=== PATIENT | female | born 2000 | race Caucasian/White ===

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

== ENCOUNTER → 2022-02-11 15:04 | Outpatient (BNVA) | payer MEDICAID, SELFPAY | PROVIDERS: PCP Registered Nurse; Visit Provider Obstetrics & Gynecology | DX: Z34.90 Encounter for supervision of normal pregnancy, unspecified, unspecified trimester (principal); Z3A.00 Weeks of gestation of pregnancy not specified | CPT/HCPCS: 81000 ==

== ENCOUNTER → 2022-02-25 09:33 | Outpatient (BNVA) | payer MEDICAID, SELFPAY | PROVIDERS: PCP Registered Nurse; Visit Provider Obstetrics & Gynecology | DX: Z34.90 Encounter for supervision of normal pregnancy, unspecified, unspecified trimester (principal) | CPT/HCPCS: 80307; 84315; 84443; 85025; 86592; 86762; 86803; 86850; 86900; 87086; 87340; 87491; 87591; 87661; 87806 ==

== ENCOUNTER → 2022-03-25 08:39 | Outpatient (BNVA) | payer MEDICAID, SELFPAY | PROVIDERS: PCP Registered Nurse; Visit Provider Obstetrics & Gynecology | DX: Z34.90 Encounter for supervision of normal pregnancy, unspecified, unspecified trimester (principal) | CPT/HCPCS: 81000; 87086 ==

== ENCOUNTER → 2022-03-28 10:55 | Outpatient (BNVA) | payer MEDICAID, SELFPAY | PROVIDERS: PCP Registered Nurse; Visit Provider Obstetrics & Gynecology | DX: Z34.90 Encounter for supervision of normal pregnancy, unspecified, unspecified trimester (principal) | CPT/HCPCS: 87086 ==

== ENCOUNTER 2022-06-20 10:32 | Outpatient (CLI) | payer MEDICAID, SELFPAY ==
[2022-06-20 10:52] LABS: Basophils # 0.1 10^3/uL (0.0-0.1); Basophils % 0.5 %; Eosinophils # 0.1 10^3/uL (0.0-0.8); Eosinophils % 0.6 %; Hematocrit 39.9 % (37.0-47.0); Hemoglobin 12.8 g/dL (11.5-15.3); Lymphocytes # 1.2 10^3/uL (1.5-6.5); Lymphocytes % 11.3 %; Mean Corpuscular HGB Conc 32.1 g/dL (30.0-36.0); Mean Corpuscular Hemoglobin 30.4 pg (28.0-34.0); Mean Corpuscular Volume 94.8 fl (81-99); Mean Platelet Volume 9.6 fL (7.4-10.4); Monocytes # 0.5 10^3/uL (0.2-0.9); Neutrophils # 8.59 10^3/uL (1.8-8.0); Neutrophils % 81.8 %; Nucleated Red Blood Cells % 0 %; Platelet Count 205 10^3/cmm (130-400); Red Blood Count 4.21 10^6/uL (4.1-5.3); Red Cell Distribution Width 12.3 % (12.1-15.1); White Blood Count 10.5 10^3/uL (4.5-13.0)
== END 2022-06-20 10:33 | disposition home or self-care (01) ==
LOC: LAB 10:34
PROVIDERS: PCP Registered Nurse; Visit Provider Obstetrics & Gynecology
DX: Z34.90 Encounter for supervision of normal pregnancy, unspecified, unspecified trimester (principal)
CPT/HCPCS: 36415; 82950; 85025; 86850; 87086

== ENCOUNTER → 2022-07-05 10:00 | Outpatient (BNVA) | payer MEDICAID, SELFPAY | PROVIDERS: PCP Registered Nurse; Visit Provider Obstetrics & Gynecology | DX: Z34.90 Encounter for supervision of normal pregnancy, unspecified, unspecified trimester (principal); R82.90 Unspecified abnormal findings in urine | CPT/HCPCS: 81000; 87086 ==

== ENCOUNTER → 2022-07-17 10:55 | Outpatient (BNVA) | payer MEDICAID, SELFPAY | PROVIDERS: PCP Registered Nurse; Visit Provider Obstetrics & Gynecology | DX: Z34.90 Encounter for supervision of normal pregnancy, unspecified, unspecified trimester (principal) | CPT/HCPCS: 81000 ==

== ENCOUNTER → 2022-07-31 13:56 | Outpatient (BNVA) | payer MEDICAID, SELFPAY | PROVIDERS: PCP Registered Nurse; Visit Provider Nurse Practitioner Women's Health | DX: Z34.90 Encounter for supervision of normal pregnancy, unspecified, unspecified trimester (principal); Z3A.00 Weeks of gestation of pregnancy not specified | CPT/HCPCS: 80053; 81000; 82570; 84156 ==

== ENCOUNTER → 2022-08-15 10:15 | Outpatient (BNVA) | payer MEDICAID, SELFPAY | PROVIDERS: PCP Registered Nurse; Visit Provider Obstetrics & Gynecology | DX: Z34.90 Encounter for supervision of normal pregnancy, unspecified, unspecified trimester (principal) | CPT/HCPCS: 84315; 87081; 87086 ==

== ENCOUNTER 2022-08-18 17:45 | Inpatient (IN) | payer MEDICAID, SELFPAY ==
[2022-08-18 17:20] VITALS: BMI 24.1
[2022-08-18 17:31] VITALS: RESP 16
--- NOTE | 2022-08-18 17:35 | PM.OPHPUD ---
Labor & Delivery H&P Update Date of Procedure: August 18, 2022 Date H&P Performed: 08/15/22 H&P update information: I have reviewed H&P completed within last 30 days, I have examined patient prior to procedure and Changes to prior documentation as noted here (cervix: /-3/VX/IM) Admission Diagnosis: Preop diagnosis: IUP
[2022-08-18 17:47] LABS: Bilirubin Urine Neg (Negative); Blood Urine Neg (Negative); Glucose Urine UA Norm (Normal); Ketones Urine 1+ (Negative); Nitrate Urine Negative (Negative); Protein Urine Neg (Negative); Specific Gravity, Urine 1.015 (1.005-1.030); Urine Appearance Clear (CLEAR); Urine Color Yellow (Yellow); pH Urine 7 (5-7)
[2022-08-18 17:48] LABS: Add Urine Culture? No; Bacteria Urine TRACE /hpf; Leukocyte Esterase Urine Negative (Negative); Urobilinogen Urine Norm (Negative); WBC Urine RARE /hpf (0-5)
[2022-08-18 18:07] VITALS: BP 115/76; PULSE 70
[2022-08-18 19:45] VITALS: BP 110/64; PULSE 61
[2022-08-18 20:47] VITALS: BP 120/71; PULSE 67
[2022-08-18 21:14] VITALS: BP 115/69; PULSE 70; RESP 18; TEMP 36.3
[2022-08-18] MEDS: lactated ringers 1,000 ML 999 ML IV (21:50)
[2022-08-18 22:25] LABS: Basophils # 0.1 10^3/uL (0.0-0.1); Basophils % 0.5 %; Eosinophils % 0.2 %; Hematocrit 40.6 % (37.0-47.0); Lymphocytes # 1.6 10^3/uL (1.5-6.5); Lymphocytes % 12.6 %; Mean Corpuscular Hemoglobin 29.2 pg (28.0-34.0); Mean Corpuscular Volume 91.2 fl (81-99); Mean Platelet Volume 11.4 fL (7.4-10.4); Monocytes # 0.6 10^3/uL (0.2-0.9); Monocytes % 4.9 %; Neutrophils # 10.04 10^3/uL (1.8-8.0); Neutrophils % 81.2 %; Nucleated Red Blood Cells % 0 %; Platelet Count 238 10^3/cmm (130-400); Red Blood Count 4.45 10^6/uL (4.1-5.3); Red Cell Distribution Width 12.5 % (12.1-15.1); White Blood Count 12.4 10^3/uL (4.5-13.0)
[2022-08-18] MEDS: dextrose 5%-lactated ringers 1,000 ML 125 ML IV (22:55)
[2022-08-18 23:14] LABS: Slide Review Slide Review Perform
[2022-08-18] MEDS: oxytocin 30 UNIT/500 ML BAG 600 UNIT IV (23:45)
--- NOTE | 2022-08-18 23:46 | PM.DELIVERY ---
Delivery Note: Date of delivery: August 18, 2022 Pre-delivery diagnoses: Term Post-delivery diagnoses: Term delivered Procedure: Spontaneous vaginal delivery Delivering Physician: Jignesh Lockett MD Estimated blood loss (mL): 300 Delivery: The patient was noted to be complete and pushing, so was placed in the dorsal lithotomy position, prepped and draped in the usual sterile fashion for a vaginal delivery. Pt. Noted to have epidural anesthesia. At 1139 the patient delivered a viable term female weighing 2770 g with scores of 8 and 9 at one and five minutes, respectively. The vertex was delivered spontaneously over intact perineum. The patient was asked to push and the head delivered spontaneously in the AGAPITO position, over an intact perineum. A nuchal cord was checked and none noted. The anterior shoulder delivered easily and the posterior shoulder followed. The remainder of the was easily delivered and the oropharynx and nasopharynx was bulb suctioned. The was noted to have spontaneous cry and spontaneous movement of all four extremities. The cord was clamped x 2 and cut and noted to have 2 arteries and one vein. The was passed to the mother's at the where nursing personnel were in attendance. Cord blood sample was then obtained. The placenta delivered intact spontaneously and the uterus was explored. 20 units of Pitocin was placed in the IV bag to firm the uterus. Examination of the cervix and vaginal vault did not reveal any lacerations. A vaginal pack was then placed. Examination of the perineum showed no lacerations. The vaginal pack was then removed. The patient tolerated this procedure well, and recovered in L&D with her in their LDR room. All sponge and needle counts were correct. Post-Delivery Status: Good and stable History History History 3 Term 1 0 Miscarriages/Ectopic 1 Living Children 1 A&P Assessment and plan (1) Term delivered: Plan observation Coding Level of Care Code Acute Code for Chg Fwd Diagnoses Term delivered O80
[2022-08-18 23:50] VITALS: PULSE 80; RESP 16
[2022-08-19] VITALS (12 sets, daily range): BP systolic 106–116; BP diastolic 54–85; PULSE 60–75; RESP 15–18; TEMP 36.6–36.9; O2SAT 98
[2022-08-19] MEDS: ibuprofen 800 mg tablet PO ×4 (00:33→20:48)
[2022-08-19] MEDS: docusate sodium 100 mg Capsule PO (08:57)
[2022-08-19] MEDS: prenatal vitamin Capsule 1 CAP PO (08:57)
[2022-08-19 13:36] LABS: Hemoglobin 11.6 g/dL (11.5-15.3); Mean Corpuscular HGB Conc 32.2 g/dL (30.0-36.0); Mean Corpuscular Hemoglobin 29.6 pg (28.0-34.0); Mean Corpuscular Volume 91.8 fl (81-99); Mean Platelet Volume 10.3 fL (7.4-10.4); Platelet Count 213 10^3/cmm (130-400); Red Blood Count 3.92 10^6/uL (4.1-5.3); Red Cell Distribution Width 12.6 % (12.1-15.1); White Blood Count 14.3 10^3/uL (4.5-13.0)
--- NOTE | 2022-08-19 17:16 | PM.PN ---
Subjective Subjective: Mrs. Reeves 22-year-old female G2, P2 status post continuous vaginal delivery day 1. under observation Vitals/I&O/Wt Last Vital Signs Temp 98.2 F 08/20/22 16:00 Pulse 70 08/20/22 16:00 Resp 16 08/20/22 16:00 BP 103/65 08/20/22 16:00 Pulse Ox 100 08/20/22 16:00 O2 Del Method 08/20/22 16:00 Weight last 48 hrs Weight 72.121 kg Physical Exam Narrative: GA; alert and oriented x 3 HEENT: normal Breasts: engorged Nipples - skin intact Lungs; clear to auscultation Heart: regular rhythm, no murmurs. Abd: Appropriately tender. BS+. Uterine fundus below umbilicus. No Fundal Tenderness. Perineum: normal lochia. Extremities: no edema, no cyanosis, no tenderness. Data 08/19/22 12:20 A&P Assessment and plan (1) Term delivered: Mrs. Reeves status post continuous vaginal delivery day 1. Afebrile hemodynamically stable. Tolerating diet well. Ambulating without difficulty. Plan observation Attestations Medical Necessity Statement*: In my professional opinion per admitting diagnosis Coding Level of Care Code Acute Code for Chg Fwd Diagnoses Term delivered O80
[2022-08-20 03:34] VITALS: BP 103/64; PULSE 64; RESP 14
[2022-08-20] MEDS: lanolin oint 7 gm 1 APPLIC TOPICAL (08:15)
[2022-08-20] MEDS: ibuprofen 800 mg tablet PO ×2 (09:07→14:54)
[2022-08-20] MEDS: docusate sodium 100 mg Capsule PO (09:07)
[2022-08-20] MEDS: prenatal vitamin Capsule 1 CAP PO (09:07)
[2022-08-20 10:01] VITALS: BP 99/64; PULSE 68; RESP 16; TEMP 36.6; O2SAT 98
[2022-08-20] MEDS: HYDROcodone-acetaminophen 5-325 mg Tablet PO (11:02)
[2022-08-20 16:00] VITALS: BP 103/65; PULSE 70; RESP 16; TEMP 36.8; O2SAT 100
--- NOTE | 2022-08-20 17:09 | PM.OBGYDC ---
Discharge Providers CASTING COORDINATOR Date of Admission: 08/18/22 17:45 Date of Discharge: 08/20/22 Attending Provider at Admission: Jignesh Lockett MD Attending Provider at Discharge: Jignesh Lockett MD Primary CASTING COORDINATOR: Dr. Cowan Primary Care Provider: Amira Macias Diagnoses at Discharge Discharge Diagnosis (1) Term delivered: Status: Acute Reason for Visit Reason for Visit: CONTRACTIONS Hospital Course Hospital Course Mrs. Reeves 22-year-old female with a term came to labor and delivery. She progressed to have a spontaneous vaginal delivery without complications. observation was uneventful. She is afebrile and hemodynamically stable day 2. Tolerating diet well. Ambulating without difficulty. Counseled regarding pelvic rest for 6 weeks (no sex, no tampons, no vaginal douches). Return to the emergency room if any fever, increased bleeding or pain. Information Peripartum Data: Infant Delivery Method: Vaginal Physical Exam Narrative: GA; alert and oriented x 3 HEENT: normal Breasts: engorged Nipples - skin intact Lungs; clear to auscultation Heart: regular rhythm, no murmurs. Abd: Appropriately tender. BS+. Uterine fundus below umbilicus. No Fundal Tenderness. Perineum: normal lochia. Extremities: no edema, no cyanosis, no tenderness. History History History 3 Term 1 0 Miscarriages/Ectopic 1 Living Children 1 Discharge Data Studies Completed and Pending Laboratory Results WBC 14.3 10^3/uL (4.5-13.0) H 08/19/22 12:20 RBC 3.92 10^6/uL (4.1-5.3) L 08/19/22 12:20 Hgb 11.6 g/dL (11.5-15.3) 08/19/22 12:20 Hct 36.0 % (37.0-47.0) L 08/19/22 12:20 MCV 91.8 fl (81-99) 08/19/22 12:20 MCH 29.6 pg (28.0-34.0) 08/19/22 12:20 MCHC 32.2 g/dL (30.0-36.0) 08/19/22 12:20 RDW 12.6 % (12.1-15.1) 08/19/22 12:20 Plt Count 213 10^3/cmm (130-400) 08/19/22 12:20 MPV 10.3 fL (7.4-10.4) 08/19/22 12:20 Neut % (Auto) 81.2 % 08/18/22 17:47 Lymph % (Auto) 12.6 % 08/18/22 17:47 [place] % (Auto) 4.9 % 08/18/22 17:47 Eos % (Auto) 0.2 % 08/18/22 17:47 Baso % (Auto) 0.5 % 08/18/22 17:47 Neut # (Auto) 10.04 10^3/uL (1.8-8.0) H 08/18/22 17:47 Lymph # (Auto) 1.6 10^3/uL (1.5-6.5) 08/18/22 17:47 [place] # (Auto) 0.6 10^3/uL (0.2-0.9) 08/18/22 17:47 Eos # (Auto) 0.0 10^3/uL (0.0-0.8) 08/18/22 17:47 Baso # (Auto) 0.1 10^3/uL (0.0-0.1) 08/18/22 17:47 Nucleated RBC % (auto) 0 % 08/18/22 17:47 Nucleated RBCs # 0.0 /100WBC 08/18/22 17:47 Urine Color Yellow (Yellow) 08/18/22 17:30 Urine Appearance Clear (CLEAR) 08/18/22 17:30 Urine pH 7 (5-7) 08/18/22 17:30 Ur Specific [place] 1.015 (1.005-1.030) 08/18/22 17:30 Urine Protein Neg (Negative) 08/18/22 17:30 Urine Glucose (UA) Norm (Normal) 08/18/22 17:30 Urine Ketones 1+ (Negative) H 08/18/22 17:30 Urine Blood Neg (Negative) 08/18/22 17:30 Urine Nitrate Negative (Negative) 08/18/22 17:30 Urine Bilirubin Neg (Negative) 08/18/22 17:30 Urine Urobilinogen Norm mg/dL (Negative) 08/18/22 17:30 Ur Leukocyte Esterase Negative (Negative) 08/18/22 17:30 Urine RBC None /hpf (0-2) 08/18/22 17:30 Urine WBC Rare /hpf (0-5) 08/18/22 17:30 Ur Squamous Epith Cells 5-10 /hpf (0-5) H 08/18/22 17:30 Amorphous Sediment Not Reportable 08/18/22 17:30 Urine Bacteria Trace /hpf (NONE) 08/18/22 17:30 Vitals Last Vital Signs Temp 98.2 F 08/20/22 16:00 Pulse 70 08/20/22 16:00 Resp 16 08/20/22 16:00 BP 103/65 08/20/22 16:00 Pulse Ox 100 08/20/22 16:00 O2 Del Method 08/20/22 16:00 Discharge Plan Discharge Patient Disposition: Home Condition: Stable Prescriptions: New acetaminophen 325 mg capsule 325 mg PO Q4H PRN (Reason: fever or pain) Qty: 60 0RF docusate sodium [Colace] 100 mg capsule 100 mg PO BID Qty: 60 0RF ibuprofen 800 mg tablet 800 mg PO TID PRN (Reason: pain) Qty: 60 0RF Continued prenat.vits,bud,pfg-amch-kmawm Tablet 1 tab PO DAILY Discharge Orders: Discharge Order (Routine); Ordered 08/20/22 Ordered By: Jignesh Lockett Referrals: Jignesh Lockett MD [Physician] - Stephanie Cowan MD [Physician] - 6 Weeks Discharge Diet: Usual diet Discharge Activity: Limit activity as instructed Patient Instructions: Opioid Safety Activity Restrictions/Additional Instructions: 1. Please call [facility] on next working day to make your appointment in 6 weeks. 2. Please stay home until you come back to the clinic on first post-operative check up. 3. Please follow instructions on your medications CAREFULLY. 4. If you have abdominal incision, do not cover it unless dressing is necessary because of drainage. OK to shower, but avoid bath. Leave steri-strips until they fall off. If they are still on one week after surgery, you may remove them. 5. If you had vaginal surgery or vaginal repair, Dr. Lockett may instruct you to take SITZ bath. 6. Yellow, blood tinged odorous vaginal discharge is usually normal after hysterectomy or vaginal surgeries. 7. No sexual intercourse, tampons, or douches until you are completely released from the post-operative care. 8. Avoid constipation by eating right and maybe using some Metamucil or Milk of Magnesia. 9. All prescription refills are given during the working hours. Please do no wait till it runs out. Call the clinic at [phone] before your medication runs out. The clinic will get in touch with your doctor to prescribe medications if necessary. 10. Please remain within 40 mile radius from our hospital because emergencies do happen now and then during the post-operative period. 11. If you have stairs at home, take one step at a time slowly and minimize the number of trips. It helps to stay in one floor for the next few days. No lifting except what you can lift by one hand until you are released from the post-operative care. 12. Driving is discouraged until you are well healed. It may be 3-4 weeks before you feel strong enough to drive. You should be able to turn and look through the rear window without pain and you should be able to push the brake pedal very hard without pain before you drive. No fast rules, but SAFETY should be your primary concern. DO NOT drive if you are on sedating medications such as narcotics. 13. Call the clinic (during working hours) to make urgent appointment or go to the Emergency room, if any of the following occurs: i. Vaginal bleeding becomes heavy, more than a period. ii. Incision becomes red and sore, or drains pus. iii. Your temperature is over 100.4 or you have chill. iv. IV site becomes red and swollen (a little ``knot?? is usually OK) v. Persistent nausea and vomiting vi. Persistent constipation or diarrhea vii. Rash or allergic reaction to medications. Discharge Attestations CASTING COORDINATOR Time Spent in Discharge Care*: greater than 30 min Coding Level of Care Code Acute Code for Chg Fwd Diagnoses Term delivered O80
[2022-08-20 18:05] VITALS: BP 103/65; PULSE 70; RESP 16; TEMP 36.8; O2SAT 100
== END 2022-08-20 18:04 | disposition home or self-care (01) | DRG 806 ==
LOC: OPOB 17:45 → OBGYN 17:45
PROVIDERS: Absent Provider Obstetrics & Gynecology; Admitting Provider Obstetrics & Gynecology; PCP Registered Nurse; Visit Provider Obstetrics & Gynecology
DX: O99.824 Streptococcus B carrier state complicating childbirth (principal); F33.9 Major depressive disorder, recurrent, unspecified; Z37.0 Single live birth; O99.344 Other mental disorders complicating childbirth; F41.1 Generalized anxiety disorder; Z3A.36 36 weeks gestation of pregnancy
CPT/HCPCS: 36415; 59025; 59409; 81001; 85025; 85027; 98960; 99211; J2590; J2795; J7120; J7121

== ENCOUNTER → 2023-03-05 07:55 | Outpatient (BNVA) | payer MEDICAID, SELFPAY | PROVIDERS: PCP Registered Nurse; Visit Provider Nurse Practitioner Women's Health | DX: Z34.90 Encounter for supervision of normal pregnancy, unspecified, unspecified trimester (principal) | CPT/HCPCS: 81000 ==

== ENCOUNTER → 2023-03-12 07:54 | Outpatient (BNVA) | payer MEDICAID, SELFPAY | PROVIDERS: PCP Registered Nurse; Visit Provider Nurse Practitioner Women's Health | DX: Z34.91 Encounter for supervision of normal pregnancy, unspecified, first trimester (principal); Z3A.01 Less than 8 weeks gestation of pregnancy | CPT/HCPCS: 76817 ==

== ENCOUNTER → 2023-04-14 13:45 | Outpatient (BNVA) | payer MEDICAID, SELFPAY | PROVIDERS: PCP Registered Nurse; Visit Provider Obstetrics & Gynecology | DX: Z34.80 Encounter for supervision of other normal pregnancy, unspecified trimester (principal) | CPT/HCPCS: 80307; 81000; 85027; 86592; 86762; 86803; 86850; 86900; 87086; 87340; 87806 ==

== ENCOUNTER → 2023-05-15 08:46 | Outpatient (BNVA) | payer MEDICAID, SELFPAY | PROVIDERS: PCP Registered Nurse; Visit Provider Nurse Practitioner Women's Health | DX: Z34.80 Encounter for supervision of other normal pregnancy, unspecified trimester (principal); Z3A.00 Weeks of gestation of pregnancy not specified | CPT/HCPCS: 82105; 84315; 87491; 87591 ==

== ENCOUNTER → 2023-06-10 08:02 | Outpatient (BNVA) | payer MEDICAID, SELFPAY | PROVIDERS: PCP Registered Nurse; Visit Provider Obstetrics & Gynecology | DX: Z34.92 Encounter for supervision of normal pregnancy, unspecified, second trimester (principal); Z3A.20 20 weeks gestation of pregnancy | CPT/HCPCS: 76805 ==

== ENCOUNTER → 2023-06-13 14:31 | Outpatient (BNVA) | payer MEDICAID, SELFPAY | PROVIDERS: PCP Registered Nurse; Visit Provider Obstetrics & Gynecology | DX: Z34.80 Encounter for supervision of other normal pregnancy, unspecified trimester (principal) | CPT/HCPCS: 81000 ==

== ENCOUNTER → 2023-07-18 15:27 | Outpatient (BNVA) | payer MEDICAID, SELFPAY | PROVIDERS: PCP Registered Nurse; Visit Provider Obstetrics & Gynecology | DX: Z34.92 Encounter for supervision of normal pregnancy, unspecified, second trimester (principal); Z3A.24 24 weeks gestation of pregnancy | CPT/HCPCS: 76816 ==

== ENCOUNTER → 2023-07-25 08:03 | Outpatient (BNVA) | payer MEDICAID, SELFPAY | PROVIDERS: PCP Registered Nurse; Visit Provider Obstetrics & Gynecology | DX: Z34.80 Encounter for supervision of other normal pregnancy, unspecified trimester (principal); Z3A.00 Weeks of gestation of pregnancy not specified | CPT/HCPCS: 81000 ==

== ENCOUNTER → 2023-08-08 08:00 | Outpatient (BNVA) | payer MEDICAID, SELFPAY | PROVIDERS: PCP Registered Nurse; Visit Provider Obstetrics & Gynecology | DX: Z34.80 Encounter for supervision of other normal pregnancy, unspecified trimester (principal); Z3A.00 Weeks of gestation of pregnancy not specified | CPT/HCPCS: 81000; 82950; 85025 ==

== ENCOUNTER → 2023-08-20 10:05 | Outpatient (BNVA) | payer MEDICAID, SELFPAY | PROVIDERS: PCP Registered Nurse; Visit Provider Obstetrics & Gynecology | DX: Z34.80 Encounter for supervision of other normal pregnancy, unspecified trimester (principal) | CPT/HCPCS: 81000 ==

== ENCOUNTER → 2023-08-27 08:49 | Outpatient (BNVA) | payer MEDICAID, SELFPAY | PROVIDERS: PCP Registered Nurse; Visit Provider Obstetrics & Gynecology | DX: Z34.93 Encounter for supervision of normal pregnancy, unspecified, third trimester (principal); Z3A.31 31 weeks gestation of pregnancy | CPT/HCPCS: 76816 ==

== ENCOUNTER → 2023-09-05 08:03 | Outpatient (BNVA) | payer MEDICAID, SELFPAY | PROVIDERS: PCP Registered Nurse; Visit Provider Obstetrics & Gynecology | DX: Z34.80 Encounter for supervision of other normal pregnancy, unspecified trimester (principal) | CPT/HCPCS: 81000 ==

== ENCOUNTER → 2023-09-25 10:16 | Outpatient (BNVA) | payer MEDICAID, SELFPAY | PROVIDERS: PCP Registered Nurse; Visit Provider Nurse Practitioner Women's Health | DX: Z34.80 Encounter for supervision of other normal pregnancy, unspecified trimester (principal); Z3A.00 Weeks of gestation of pregnancy not specified | CPT/HCPCS: 81000; 87077; 87081; 87184 ==

== ENCOUNTER 2023-09-29 22:36 | Outpatient (CLI) | payer MEDICAID, SELFPAY ==
[2023-09-29 22:47] VITALS: BP 123/66; PULSE 71
[2023-09-29 23:09] VITALS: BP 112/62; PULSE 68
[2023-09-29 23:29] VITALS: BP 115/66; PULSE 68
== END 2023-09-29 23:46 | disposition home or self-care (01) ==
LOC: OPOB 22:37 → OBGYN 22:37
PROVIDERS: PCP Registered Nurse; Visit Provider Obstetrics & Gynecology
DX: O26.899 Other specified pregnancy related conditions, unspecified trimester (principal); Z3A.00 Weeks of gestation of pregnancy not specified
CPT/HCPCS: 59025; 99211

== ENCOUNTER 2023-10-03 17:17 | Outpatient (CLI) | payer MEDICAID, SELFPAY ==
[2023-10-03 17:26] VITALS: BMI 22.1
[2023-10-03 17:32] VITALS: BP 115/62; PULSE 67
[2023-10-03 17:52] VITALS: BP 116/63; PULSE 70
[2023-10-03 17:55] VITALS: BP 116/63; PULSE 70
== END 2023-10-03 17:55 | disposition home or self-care (01) ==
LOC: OPOB 17:23 → OBGYN 17:24
PROVIDERS: PCP Obstetrics & Gynecology; Visit Provider Obstetrics & Gynecology
DX: O36.5990 Maternal care for other known or suspected poor fetal growth, unspecified trimester, not applicable or unspecified (principal); Z3A.00 Weeks of gestation of pregnancy not specified
CPT/HCPCS: 59025; 81000; 99211

== ENCOUNTER 2023-10-08 16:50 | Outpatient (CLI) | payer MEDICAID, SELFPAY ==
--- NOTE | 2023-10-08 17:02 | USR_ITS ---
PROCEDURE INFORMATION: Exam: US Biophysical Profile Without Non-Stress Test Exam date and time: 10/08/2023 5:23 PM Age: 23 years old Clinical indication: Screening exam; Routine US screening of fetus; Third trimester (=28 weeks 0 days); ; Additional info: Iugr. With judi and efw TECHNIQUE: Imaging protocol: US biophysical profile without non-stress testing. COMPARISON: [place] [id number] 08/27/2023 8:52 AM FINDINGS: heart rate: 112 bpm BIOPHYSICAL PROFILE: breathing movement (BPP): 2 /2 body movement (BPP): 2 /2 tone (BPP): 2 /2 Amniotic fluid (BPP): 2 /2 Biophysical profile score (BPP): 8 /8 US/US OB BPP wo NST 83086 IMPRESSION: 1. Biophysical profile score is 8 out of 8.
[2023-10-08 17:07] VITALS: BP 114/66; PULSE 66
[2023-10-08 17:10] VITALS: BMI 24.7
[2023-10-08 17:52] VITALS: BP 114/66; PULSE 66
== END 2023-10-08 17:50 | disposition home or self-care (01) ==
LOC: OPOB 16:57 → OBGYN 16:58
PROVIDERS: PCP Obstetrics & Gynecology; Visit Provider Obstetrics & Gynecology
DX: O36.5990 Maternal care for other known or suspected poor fetal growth, unspecified trimester, not applicable or unspecified (principal); Z3A.00 Weeks of gestation of pregnancy not specified
CPT/HCPCS: 59025; 76819; 99211

== ENCOUNTER → 2023-10-10 15:15 | Outpatient (BNVA) | payer MEDICAID, SELFPAY | PROVIDERS: PCP Obstetrics & Gynecology; Visit Provider Obstetrics & Gynecology | DX: Z34.90 Encounter for supervision of normal pregnancy, unspecified, unspecified trimester (principal); Z3A.00 Weeks of gestation of pregnancy not specified | CPT/HCPCS: 81000 ==

== ENCOUNTER 2023-10-13 13:33 | Inpatient (IN) | payer MEDICAID, SELFPAY ==
[2023-10-13] VITALS (15 sets, daily range): BP systolic 105–125; BP diastolic 65–73; PULSE 63–85; RESP 16–18; TEMP 36.1–36.8; O2SAT 98–99; BMI 24.7
[2023-10-13 13:31] LABS: Basophils # 0.1 10^3/uL (0.0-0.1); Basophils % 0.4 %; Eosinophils % 0.2 %; Hematocrit 38.5 % (36-47); Lymphocytes # 1.4 10^3/uL (0.8-4.8); Lymphocytes % 8.5 %; Mean Corpuscular HGB Conc 33.5 g/dL (30-55); Mean Corpuscular Hemoglobin 30.1 pg (27-33); Mean Corpuscular Volume 89.7 fl (85-98); Mean Platelet Volume 10.2 fL (7.4-10.4); Monocytes # 0.9 10^3/uL (0.2-0.9); Monocytes % 5.4 %; Neutrophils # 14.16 10^3/uL (1.8-7.7); Neutrophils % 84.5 %; Nucleated Red Blood Cells % 0 %; Platelet Count 185 10^3/cmm (157-399); Red Blood Count 4.29 10^6/uL (3.85-5.65); Red Cell Distribution Width 12.5 % (12.1-15.1); White Blood Count 16.76 10^3/uL (3.29-11.43)
--- NOTE | 2023-10-13 14:22 | P.HP_ITS ---
Providers/Chief Complaint 2 Admitting Physician: Inessa Sam DO Primary FLIGHT TEST DATA ACQUISITION TECHNICIAN: Dr. Macario Primary Care Provider: Jignesh Lockett MD Chief Complaint: possible SROM HPI FLIGHT TEST DATA ACQUISITION TECHNICIAN History of Present Illness Jarrod Reeves is a 23 year old female G4, P2 at 37.6 weeks gestation admitted to labor and delivery in active labor with cervix 7 cm. Patient complained of onset of contractions at 6 AM with spontaneous rupture of membranes at 11 AM. She admits to good movement, painful uterine contractions and denies vaginal bleeding. Patient sees Dr. Lockett for care and denies any complications through this . Present Details : 4 Para: 2 Date of Last Menstrual Period: 01/03/23 Calculated Date of Delivery: 10/10/23 Gestational Age Based on Last Menstrual Period: 40 Obstetrical complications: none Medical complications OB: none Labs Blood type OB HPI: O (+) positive Rubella: Immune RPR: Negative HBsAG: Negative Other Lab Information: GC/committee a?negative HIV?nonreactive Hep C?nonreactive Review of Systems 2 General: Reports: 10 or more systems reviewed and unremarkable except in HPI and below Medications/Allergies Home Medications Medication Instructions Recorded Confirmed Last Taken Type prenat.vits,bud,ypb-dxco-zpwja 1 tab PO DAILY 01/23/22 10/10/23 08/17/22 19:00 History Allergies Allergy/AdvReac Type Severity Reaction Status Date / Time amoxicillin Allergy Mild ALGY-Rash Verified 10/10/23 15:26 PFSH FLIGHT TEST DATA ACQUISITION TECHNICIAN 2 PFSH: Medical History No pertinent past medical history neghx:htn,dm,thyroid,dvt/pe PCP: Renée 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 Mother Diabetes Hypertension Father Hypertension Denies family history of Colon cancer Ovarian cancer Uterine cancer Thyroid disease Other Female Reproductive History: Hx Age of Menarche: 14 Sexual History: Are you sexually active?: Yes How old were you when you first had sex?: 18 Less than 5 How long have you been with your current partner?: 2020-May What is your sexual preference?: Heterosexual History History History 2 4 Term 2 0 Miscarriages/Ectopic 1 Living Children 2 Care CHELSEA Calculator 2 Estimated Delivery Date Method Current WG Current Estimate 10/28/23 Ultrasound #1 37w 6d Other Estimates 10/10/23 LMP (Certain) 40w 3d Specific Issues/Plans * ANXIETY/DEPRESSION * amniotic band-- ruled out at 32 weeks Vitals/I&O/Wt Last Vital Signs Pulse 78 10/13/23 14:07 BP 119/68 10/13/23 14:07 Physical Exam 2 Const: COMMON NORMALS: no acute distress, patient oriented x3, healthy appearing and well nourished HENMT: COMMON NORMALS: normocephalic Resp: COMMON NORMALS: clear to auscultation bilaterally Cardio: COMMON NORMALS: regular rate and regular rhythm Back/Pelvis: OTHER: Abdomen?soft, gravid Extremity: COMMON NORMALS: no clubbing, cyanosis or edema and no calf tenderness Neuro: COMMON NORMALS: patient oriented x3, CN's II-XII intact bilaterally and deep tendon reflexes 2+ bilaterally Data 10/13/23 13:24 Results Labs OB ([facility]): 2 Obstetrics US 08/27/23 Obstetrics US/Biophysical Profile Blood Type O Positive 04/14/23 Antibody Screen Negative 04/14/23 Hct 38.5 % (36-47) 10/13/23 Hgb 12.90 g/dL (11.27-16.99) 10/13/23 Rho(D) Type Positive 04/14/23 Plt Count 185 10^3/cmm (157-399) 10/13/23 Hep Bs Antigen Non-reactive (Nonreactive) 04/14/23 Hepatitis C Antibody Non-reactive (Nonreactive) 04/14/23 Rubella IgG Antibody 179.4 IU/mL (0.0-10.0) H 04/14/23 RPR Nonreactive (Nonreactive) 04/14/23 HIV 1&2 Ab & HIV 1 Ag Non-reactive (Non-Reactiv) 04/14/23 TSH 0.83 uIU/mL (0.27-4.20) 02/25/22 C.trachomatis RNA (TMA) Not detected (NOT DETECTED) N.gonorrhoeae RNA (TMA) Not detected (NOT DETECTED) T. vaginalis Amp RNA Not detected (NOT DETECTED) 05/15/23 Chlamydia/GC Comment See note 05/15/23 Cystic Fibrosis Screen Negative 04/25/23 Glucose 1 Hr 50 gm 76 mg/dL (85-140) L 11/10/19 Gest Glucose Tolerance 72 mg/dL (70-139) 08/08/23 Ser , Semi-Qnt 0.50 mIU/mL 10/11/21 Urine Opiates Screen Negative ng/mL (Negative) 04/14/23 Ur Barbiturates Screen Negative ng/mL (Negative) 04/14/23 Ur Phencyclidine Scrn Negative ng/mL (Negative) 04/14/23 Ur Amphetamines Screen Negative ng/mL (Negative) 04/14/23 U Benzodiazepines Scrn Negative ng/mL (Negative) 04/14/23 Urine Cocaine Screen Negative ng/mL (Negative) 04/14/23 U Marijuana (THC) Screen Negative ng/mL (Negative) 04/14/23 Micro Urine Specimen 04/14/23 A&P Assessment and plan (1) 37 weeks gestation of : Admit to labor delivery for management of labor (2) GBS (group B Streptococcus carrier), +RV culture, currently : (3) Asymmetric IUGR affecting , antepartum: (4) Generalized anxiety disorder: (5) Major depressive disorder, recurrent severe without psychotic features: (6) Spontaneous rupture of membranes: Attestations 2 Medical Necessity Statement*: Patient admitted to labor and delivery for management of labor Coding Level of Care Code Acute Code for Chg Fwd Diagnoses 37 weeks gestation of Z3A.37 GBS (group B Streptococcus carrier), +RV culture, currently O99.820 Asymmetric IUGR affecting , antepartum O36.5990 Generalized anxiety disorder F41.1 Major depressive disorder, recurrent severe without psychotic features F33.2 Spontaneous rupture of membranes
--- NOTE | 2023-10-13 14:37 | P.PCNOB_ITS ---
Delivery Note: Date of delivery: October 13, 2023 Pre-delivery diagnoses: 37.6 weeks intrauterine gestation Active labor Spontaneous rupture membranes GBS positive History of IUGR?asymmetric History of generalized anxiety disorder History of major depressive disorder Procedure: Spontaneous vaginal delivery of a viable male 6 pounds 2 Op report anesthesia: None Delivering Physician: Inessa Sam DO Estimated blood loss (mL): 300 Findings: Viable baby boy with nuchal cord x 1 easily reduced. Spontaneous robust cry. Delivery: 23-year-old female G4, P3 delivered a vi able male via from OA presentation followed by delivery of the anterior then posterior shoulders with the remainder the baby's body to follow. Nuchal cord x 1 was easily reduced. A spontaneous robust cry was noted. The umbilical cord was clamped and cut and baby placed on mother's chest for bonding. Cord blood and pH were obtained and handed off. The uterus was massaged and the placenta presented with postdates appearance intact with trailing membranes. The uterus was massaged History History History 4 Term 3 0 Miscarriages/Ectopic 1 Living Children 3 A&P Assessment and plan (1) Spontaneous vaginal delivery: Begin care. (2) Spontaneous rupture of membranes: (3) 37 weeks gestation of : (4) GBS (group B Streptococcus carrier), +RV culture, currently : (5) Asymmetric IUGR affecting , antepartum: (6) Generalized anxiety disorder: (7) Major depressive disorder, recurrent severe without psychotic features: Coding Level of Care Code Acute Code for Chg Fwd Diagnoses Spontaneous vaginal delivery O80 Spontaneous rupture of membranes 37 weeks gestation of Z3A.37 GBS (group B Streptococcus carrier), +RV culture, currently O99.820 Asymmetric IUGR affecting , antepartum O36.5990 Generalized anxiety disorder F41.1 Major depressive disorder, recurrent severe without psychotic features F33.2
[2023-10-13] MEDS: ceFAZolin 2,000 MG in sodium chloride 0.9% (plus) 50 ML 100 MG IV (15:23)
[2023-10-13] MEDS: HYDROcodone-acetaminophen 5-325 mg Tablet PO (15:25)
[2023-10-13] MEDS: ibuprofen 800 mg tablet PO ×2 (15:25→20:27)
[2023-10-13] MEDS: lactated ringers 1,000 ML 999 ML IV (15:25)
[2023-10-13] MEDS: docusate sodium 100 mg Capsule PO (18:37)
[2023-10-13] MEDS: benzocaine-menthol 78 gm Canister 1 SPRAY TOPICAL (20:27)
[2023-10-13] MEDS: lanolin oint 7 gm 1 APPLIC TOPICAL (20:27)
[2023-10-14 01:30] LABS: Mean Corpuscular HGB Conc 33.5 g/dL (30-55); Mean Corpuscular Hemoglobin 30.2 pg (27-33); Mean Corpuscular Volume 90.2 fl (85-98); Mean Platelet Volume 10.2 fL (7.4-10.4); Platelet Count 192 10^3/cmm (157-399); Red Blood Count 3.77 10^6/uL (3.85-5.65); Red Cell Distribution Width 12.4 % (12.1-15.1); White Blood Count 17.69 10^3/uL (3.29-11.43)
[2023-10-14 04:00] VITALS: BP 102/61; PULSE 67; RESP 16; TEMP 36.8; O2SAT 98
[2023-10-14] MEDS: acetaminophen 325 mg Tablet 650 MG PO (06:47)
[2023-10-14] MEDS: docusate sodium 100 mg Capsule PO ×2 (09:20→20:48)
[2023-10-14] MEDS: PRENATAL VIT NO.130/IRON/FOLIC 1 EACH TABLET PO (09:20)
[2023-10-14] MEDS: ibuprofen 800 mg tablet PO ×3 (09:21→20:48)
[2023-10-14 09:25] VITALS: BP 113/70; PULSE 64; TEMP 36.7
--- NOTE | 2023-10-14 14:05 | P.PN_ITS ---
LAB DIRECTOR Subjective 2 Subjective: Interval history: no c/o no headaches, dizziness, nausea, abdominal pain, bleeding normal lochia mild perineal pain, relieved with pain meds eating, voiding, ambulating well Labor: Station: 0 Amniotic Membrane Status: Ruptured Monitor Mode: External Contraction Pattern: Regular Status: Category II Vitals/I&O/Wt Last Vital Signs Temp 98.5 F 10/15/23 13:00 Pulse 84 10/15/23 13:00 Resp 16 10/14/23 04:00 BP 109/69 10/15/23 13:00 Pulse Ox 98 10/15/23 04:34 O2 Del Method Room Air 10/15/23 13:00 Physical Exam 2 Narrative: afebrile, VS normal comfortable, awake, alert Abd: soft, nontender. fundus firm Ext: no edema; nontender Data 10/14/23 01:25 A&P Assessment and plan (1) Vaginal delivery: PPD #1 doing well normal course continue care Attestations 2 Medical Necessity Statement*: patient s/p vaginal delivery, for care Coding Level of Care Code Acute Code for Chg Fwd Diagnoses Vaginal delivery O80 Time Spent (min) 20
[2023-10-14 21:15] VITALS: BP 114/77; PULSE 61; O2SAT 98
[2023-10-15 04:34] VITALS: BP 104/65; PULSE 70; O2SAT 98
[2023-10-15 09:15] VITALS: BP 104/66; PULSE 56; TEMP 36.9
[2023-10-15] MEDS: docusate sodium 100 mg Capsule PO (09:32)
[2023-10-15] MEDS: ibuprofen 800 mg tablet PO (09:32)
[2023-10-15] MEDS: PRENATAL VIT NO.130/IRON/FOLIC 1 EACH TABLET PO (09:33)
--- NOTE | 2023-10-15 12:35 | P.PN_ITS ---
BUILDING AND GROUNDS SUPERVISOR Subjective 2 Subjective: Interval history: no c/o no bleeding, pain eating, voiding, ambulating well caring for without any problems Labor: Station: 0 Amniotic Membrane Status: Ruptured Monitor Mode: External Contraction Pattern: Regular Status: Category II Vitals/I&O/Wt Last Vital Signs Temp 98.5 F 10/15/23 13:00 Pulse 84 10/15/23 13:00 Resp 16 10/14/23 04:00 BP 109/69 10/15/23 13:00 Pulse Ox 98 10/15/23 04:34 O2 Del Method Room Air 10/15/23 13:00 Physical Exam 2 Narrative: afebrile, VS normal comfortable, awake, alert Abd: soft, nontender. fundus firm Ext: no edema; nontender Data 10/14/23 01:25 A&P Assessment and plan (1) Vaginal delivery: PPD #2 doing well discharge to home today instructions and precautions given call/return if fever, chills, headache, blurry vision, nausea, vomiting, abdominal pain; vaginal bleeding or discharge; shortness of breath, chest pain, leg pains or swelling; inability to void, perineal pain or swelling; feelings of depression or mood changes; thoughts of suicide or harming others; inability to care for baby. f/u in 6 weeks or PRN Attestations 2 Medical Necessity Statement*: patient s/p vaginal delivery, plan to discharge to home today Coding Level of Care Code Acute Code for Chg Fwd Diagnoses Vaginal delivery O80 Time Spent (min) 20
--- NOTE | 2023-10-15 12:40 | PM.OBGYDC ---
Discharge Providers BAR ATTENDANT Date of Admission: 10/13/23 13:33 Date of Discharge: 10/15/23 Attending Provider at Admission: Inessa Sam DO Attending Provider at Discharge: Xu Ghosh MD Consults: none Primary BAR ATTENDANT: Jignesh Lockett MD Primary Care Provider: Jignesh Lockett MD Diagnoses at Discharge Discharge Diagnosis (1) Vaginal delivery: Details from hospital stay: patient at 37 w 6 d, presented with active labor and spontaneous rupture of membranes patient progressed to vaginal delivery without any complications patient did well and was discharged to home on the second day Status: Acute Reason for Visit Reason for Visit: possible SROM Brief History: 23 y.o. at 37 w 6 d presented with spontaneous rupture of membranes and active labor Hospital Course Hospital Course patient at 37 w 6 d, presented with active labor and spontaneous rupture of membranes patient progressed to vaginal delivery without any complications patient did well and was discharged to home on the second day Information Peripartum Data: Infant Delivery Method: Vaginal Laceration description: None Episiotomy description: None complications: none Physical Exam Narrative: afebrile, VS normal comfortable, awake, alert Abd: soft, nontender. fundus firm Ext: no edema; nontender History History History 4 Term 3 0 Miscarriages/Ectopic 1 Living Children 3 Discharge Data Studies Completed and Pending Laboratory Results WBC 17.69 10^3/uL (3.29-11.43) H 10/14/23 01:25 RBC 3.77 10^6/uL (3.85-5.65) L 10/14/23 01:25 Hgb 11.40 g/dL (11.27-16.99) 10/14/23 01:25 Hct 34.0 % (36-47) L 10/14/23 01:25 MCV 90.2 fl (85-98) 10/14/23 01:25 MCH 30.2 pg (27-33) 10/14/23 01:25 MCHC 33.5 g/dL (30-55) 10/14/23 01:25 RDW 12.4 % (12.1-15.1) 10/14/23 01:25 Plt Count 192 10^3/cmm (157-399) 10/14/23 01:25 MPV 10.2 fL (7.4-10.4) 10/14/23 01:25 Neut % (Auto) 84.5 % 10/13/23 13: Lymph % (Auto) 8.5 % 10/13/23 13: [place] % (Auto) 5.4 % 10/13/23 13: Eos % (Auto) 0.2 % 10/13/23 13:24 Baso % (Auto) 0.4 % 10/13/23 13:24 Neut # (Auto) 14.16 10^3/uL (1.8-7.7) H 10/13/23 13:24 Lymph # (Auto) 1.4 10^3/uL (0.8-4.8) 10/13/23 13: [place] # (Auto) 0.9 10^3/uL (0.2-0.9) 10/13/23 13: Eos # (Auto) 0.0 10^3/uL (0.0-0.8) 10/13/23 13: Baso # (Auto) 0.1 10^3/uL (0.0-0.1) 10/13/23 13: Nucleated RBC % (auto) 0 % 10/13/23 13: Nucleated RBCs # 0.0 /100WBC 10/13/23 13:24 Blood Type O Positive 10/13/23 13:24 Rho(D) Type Rh positive 10/13/23 13:24 Antibody Screen Negative 10/13/23 13:24 Procedures Performed vaginal delivery Vitals Last Vital Signs Temp 98.5 F 10/15/23 13:00 Pulse 84 10/15/23 13:00 Resp 16 10/14/23 04:00 BP 109/69 10/15/23 13:00 Pulse Ox 98 10/15/23 04:34 O2 Del Method Room Air 10/15/23 13:00 Results Labs OB ([facility]): Obstetrics US 08/27/23 Obstetrics US/Biophysical Profile 10/08/23 Blood Type O Positive 10/13/23 Antibody Screen Negative 10/13/23 Hct 34.0 % (36-47) L 10/14/23 Hgb 11.40 g/dL (11.27-16.99) 10/14/23 Rho(D) Type Rh positive 10/13/23 Plt Count 192 10^3/cmm (157-399) 10/14/23 Hep Bs Antigen Non-reactive (Nonreactive) 04/14/23 Hepatitis C Antibody Non-reactive (Nonreactive) 04/14/23 Rubella IgG Antibody 179.4 IU/mL (0.0-10.0) H 04/14/23 RPR Nonreactive (Nonreactive) 04/14/23 HIV 1&2 Ab & HIV 1 Ag Non-reactive (Non-Reactiv) 04/14/23 TSH 0.83 uIU/mL (0.27-4.20) 02/25/22 C.trachomatis RNA (TMA) Not detected (NOT DETECTED) 05/15/23 N.gonorrhoeae RNA (TMA) Not detected (NOT DETECTED) 05/15/23 T. vaginalis Amp RNA Not detected (NOT DETECTED) 05/15/23 Chlamydia/GC Comment See note 05/15/23 Cystic Fibrosis Screen Negative 04/25/23 Glucose 1 Hr 50 gm 76 mg/dL (85-140) L 11/10/19 Gest Glucose Tolerance 72 mg/dL (70-139) 08/08/23 Ser , Semi-Qnt 0.50 mIU/mL 10/11/21 Urine Opiates Screen Negative ng/mL (Negative) 04/14/23 Ur Barbiturates Screen Negative ng/mL (Negative) 04/14/23 Ur Phencyclidine Scrn Negative ng/mL (Negative) 04/14/23 Ur Amphetamines Screen Negative ng/mL (Negative) 04/14/23 U Benzodiazepines Scrn Negative ng/mL (Negative) 04/14/23 Urine Cocaine Screen Negative ng/mL (Negative) 04/14/23 U Marijuana (THC) Screen Negative ng/mL (Negative) 04/14/23 Micro Urine Specimen 04/14/23 Discharge Plan Discharge Patient Disposition: Home Condition: Stable Prescriptions: Continued prenat.vits,bud,pfm-xeel-xsyrf Tablet 1 tab PO DAILY Discharge Orders: Discharge Order (Routine); Ordered 10/15/23 Ordered By: Xu Ghosh Referrals: Jignesh Lockett MD [Primary Care Provider] - 6 Weeks (Your 6week follow up appointment with Dr. Lockett is 11/21/23 @ 10:30am. ) Discharge Diet: Usual diet Discharge Activity: Increase activity as tolerated Patient Instructions: Depression (DC), Bleeding (DC), Preeclampsia and Eclampsia After Delivery (GEN), Hemorrhage (DC), OB Discharge Report, OB Food/Drug Interaction Guide, Opioid Safety, OB Home Care, OB Vaginal Deliveries - [facility] Discharge Attestations BAR ATTENDANT Time Spent in Discharge Care*: less than 30 min Coding Level of Care Code Acute Code for Chg Fwd Diagnoses Vaginal delivery O80 Time Spent (min) 20
[2023-10-15 13:00] VITALS: BP 109/69; PULSE 84; TEMP 36.9
== END 2023-10-15 13:00 | disposition home or self-care (01) | DRG 807 ==
LOC: OPOB 13:34 → OBGYN 13:34
PROVIDERS: Admitting Provider Obstetrics & Gynecology; PCP Obstetrics & Gynecology; Visit Provider Obstetrics & Gynecology
DX: O99.824 Streptococcus B carrier state complicating childbirth (principal); Z37.0 Single live birth; O36.5990 Maternal care for other known or suspected poor fetal growth, unspecified trimester, not applicable or unspecified; O69.81X0 Labor and delivery complicated by cord around neck, without compression, not applicable or unspecified; Z3A.37 37 weeks gestation of pregnancy
CPT/HCPCS: 36415; 59025; 59409; 85025; 85027; 86850; 86900; 99211; J0690; J7120; J9999

== ENCOUNTER → 2023-11-28 14:37 | Outpatient (BNVA) | payer MEDICAID, SELFPAY | PROVIDERS: PCP Obstetrics & Gynecology; Visit Provider Obstetrics & Gynecology | DX: Z30.9 Encounter for contraceptive management, unspecified (principal) | CPT/HCPCS: 81025 ==